=== PATIENT | female | born 1985 | race Caucasian/White ===

== ENCOUNTER 2017-07-08 05:00 | Inpatient (IN) | payer BC ==
[~2017-07-08] VITALS: Ht 167.6 cm; Wt 89.1 kg
[2017-07-08] MEDS: LACTATED RINGER'S 1,000 ML IV SCH ×3 (05:56→21:29)
[2017-07-08 06:00] VITALS: Ht 167.6 cm; Wt 89.1 kg
[2017-07-08] MEDS ORDERED: OXYTOCIN 30 UNITS/LR 500 ML IV PRN ×2 (06:00→13:30)
[2017-07-08] MEDS ORDERED: CARBOPROST 250 MCG INJ IM PRN ×2 (06:00→13:30)
[2017-07-08] MEDS ORDERED: MISOPROSTOL 200 MCG TAB PR PRN ×2 (06:00→13:30)
[2017-07-08] MEDS ORDERED: OXYTOCIN 30 UNITS/LR 500 ML IV SCH (06:00)
[2017-07-08] MEDS ORDERED: CEFAZOLIN 2 GM/50 ML (PMX) 50 ML IV SCH (06:00)
[2017-07-08] MEDS ORDERED: METHYLERGONOVINE 0.2 MG INJ IM PRN ×2 (06:00→13:30)
[2017-07-08 06:04] VITALS: BP 110/67; PULSE 75; RESP 18
[2017-07-08 06:42] LABS: BASOPHIL # 0.1 10^3/ul (0.0-0.1); BASOPHILS % 0.6 % (0.0-2.0); EOSINOPHILS % 0.4 % (0.0-7.0); HEMATOCRIT 38.7 % (37.0-47.0); HEMOGLOBIN 12.5 g/dl (12.0-16.0); LYMPHOCYTES % 24.2 % (15.0-51.0); MEAN CORPUSCULAR HEMOGLOBIN 28.5 pg (29.0-33.0); MEAN CORPUSCULAR HGB CONC 32.3 g/dl (32.0-37.0); MEAN CORPUSCULAR VOLUME 88.2 fl (82.0-101.0); MONOCYTE # 0.9 10^3/ul (0.3-0.9); MONOCYTES % 10.1 % (0.0-11.0); NEUTROPHILS % 64.3 % (39.0-77.0); PLATELET COUNT 319 10^3/UL (140-415); RED BLOOD COUNT 4.39 10^6/ul (4.20-5.40); RED CELL DISTRIBUTION WIDTH 13.9 % (11.5-14.5); WHITE BLOOD COUNT 8.4 10^3/ul (4.8-10.8)
[2017-07-08 07:13] LABS: INR 0.93; PROTIME 12.5 Sec (12.2-14.2)
[2017-07-08 07:14] LABS: PARTIAL THROMBOPLASTIN TIME 27.9 Sec (25.0-35.0)
[2017-07-08] MEDS ORDERED: METOCLOPRAMIDE 10 MG INJ ONE (08:41)
[2017-07-08] MEDS ORDERED: OXYTOCIN 10 UNIT INJ ONE (08:41)
[2017-07-08] MEDS ORDERED: OXYTOCIN 30 UNITS/LR 500 ML IV ONE (08:41)
[2017-07-08] MEDS ORDERED: EPHEDrine SULFATE 50 MG/5 ML SYG ONE (08:41)
[2017-07-08] MEDS ORDERED: ONDANSETRON 4 MG INJ ONE (08:41)
[2017-07-08] MEDS ORDERED: morphine SULFATE/PF (10 MG/10 ML) INJ ONE (08:41)
--- NOTE | 2017-07-08 08:42 | HP ---
Date/Time of Note Date/Time of Note DATE: 07/08/17 TIME: 08:39 OB - History Hx of Present Chief Complaint: scheduled and BTL Estimated Due Date: Jul 15, 2017 : 3 Para: 2 Spontaneous : 0 Therapeutic : 0 Care: Good Care Ultrasounds: Normal mid trimester US Obstetrical Complications: Gestational Diabetes Medical Complications: None Past Family/Social History * Past Medical, Surgical, Family and Obstetric Histories reviewed from chart. OB Admission Exam Vital Signs Vital Signs Vital Signs Date Time Temp Pulse Resp B/P Pulse Ox O2 Delivery O2 Flow Rate FiO2 07/08/17 06:04 99.0 75 18 110/67 Room Air Physical Exam HEENT: WNL Heart: Rhythm Normal Lungs: Clear, Equal Abdomen: WNL Extremities: Normal Reflexes: Normal Heart Rate: 120's Accelerations: Accelerations Present Decelerations: No Decelerations Varibility: Moderate Last 72 hours Lab Results CBC & BMP 07/08/17 05:40 OB Assessment/Plan Reason for admission: section, other (bilateral tubal ligation) Plan: Section, Other (bilateral tubal ligation) ARSEN DRAKE MD Jul 08, 2017 08:42
[2017-07-08] MEDS ORDERED: ONDANSETRON 4 MG INJ IV PRN (10:30)
[2017-07-08] MEDS ORDERED: EPHEDrine SULFATE 50 MG/5 ML SYG IV PRN (10:30)
[2017-07-08] MEDS ORDERED: NALOXONE (0.4 MG/ML) INJ IV PRN (10:30)
[2017-07-08] MEDS ORDERED: KETOROLAC 30 MG INJ IV PRN (10:30)
[2017-07-08] MEDS ORDERED: morphine 4 MG/ML VIAL IV PRN (10:30)
[2017-07-08] MEDS ORDERED: DIPHENHYDRAMINE 50 MG INJ IV PRN (10:30)
[2017-07-08] MEDS ORDERED: morphine 2 MG INJ IV PRN (10:30)
[2017-07-08] MEDS ORDERED: morphine SULFATE/PF (10 MG/10 ML) INJ SPINAL ONE (10:30)
--- NOTE | 2017-07-08 10:44 | SIPON ---
Date/Time of Note Date/Time of Note DATE: 07/08/17 TIME: 10:41 Operative Report Preoperative Diagnosis 39 weeks, previous c/s x2, GDM, voluntary sterilization Postoperative Diagnosis Same Operation/Procedure Performed Repeat c/s and BTL Surgeon: ARSEN DRAKE MD promotions assistant sales marketing: BECKIE TIERNEY MD Anesthesia Type: spinal Estimated Blood Loss: other (500 ml) Transfusion Required: no Specimen: none Specimens right and left Fallopian tubes Grafts/Implants: none Complications: no ARSEN DRAKE MD Jul 08, 2017 10:44
[2017-07-08 13:15] VITALS: BP 120/60; PULSE 75
[2017-07-08] MEDS ORDERED: OXYCODONE/ACETAMINOPHEN (5/325) TAB PO PRN ×2 (13:30)
[2017-07-08] MEDS ORDERED: LANOLIN 7 GM TUBE TOP PRN (13:30)
--- NOTE | 2017-07-08 13:53 | OPR ---
DATE OF OPERATION: 07/08/2017 PREOPERATIVE DIAGNOSES: 1. at 39 weeks with previous section x2. 2. Gestational diabetes. 3. Voluntary sterilization. POSTOPERATIVE DIAGNOSES: 1. at 39 weeks with previous section x2. 2. Gestational diabetes. 3. Voluntary sterilization. OPERATION: 1. Repeat low transverse section. 2. Bilateral tubal ligation. SURGEON: Gordy Alegre MD MAGNETIC TAPE COMPOSER OPERATOR: Tram Green MD ANESTHESIA: Spinal. ANESTHESIOLOGIST: Dr. Dacosta. OPERATIVE PROCEDURE: The patient was taken to the operating room, placed on the operating table. After successful spinal anesthesia was given, the patient was placed in supine position. The area was prepared and draped in the usual sterile fashion. Spinal anesthesia was tested and was satisfactory. Using scalpel, Pfannenstiel incision was made about 2 fingerbreadths above the symphysis pubis. The incision was carried down to the fascia. The fascia was incised and extended bilaterally with curved Connolly scissors. Two Art's were used to separate the fascia from the muscle. The muscle was dissected in the midline down to the peritoneum. The peritoneum was secured with 2 Jen's and incised with Metzenbaum scissors. Using a scalpel, a small transverse incision was made on the lower segment of the uterus. Upon entering the uterine cavity, bandage scissors were inserted to extend the incision bilaterally curved up. Baby was delivered from cephalic presentation. After suctioning clear of amniotic fluid the baby was handed off to the team in attendance. Apgars were 9 and 9. The placenta was delivered without difficulty. The uterus was closed with number 1 Monocryl continuous locked. After assuring hemostasis, both ovaries and tubes were inspected and all looked normal. The right fallopian tube was grasped with a Whitehall clamp. Using 0 plain suture ligature, a 5 cm segment of the right fallopian tube was doubly ligated. Using Metzenbaum scissors, a portion of the right fallopian tube above the ligated area was excised and sent to pathology. The same procedure was repeated on the left fallopian tube. The peritoneum was closed with 2-0 Vicryl continuous. The fascia was closed with number 1 Vicryl continuous in 2 segments. Subcutaneous tissue was reapproximated with 2-0 plain. The skin was closed with cheo. ESTIMATED BLOOD LOSS: 500 mL. COUNTS: All counts were correct. Dictated By: Gordy Alegre MD /fanny/imnh /Document#: [id number]
[2017-07-08 16:00] VITALS: BP 118/69; PULSE 80; RESP 16
[2017-07-08] MEDS: OXYTOCIN 30 UNITS/LR 500 ML IV SCH ×2 (16:57→20:51)
[2017-07-08 20:45] VITALS: BP 128/73; PULSE 69; RESP 18
[2017-07-08] MEDS: SENNA/DOCUSATE NA (8.6MG/50MG) TAB PO SCH (20:49)
[2017-07-09] VITALS: BP 117/59; PULSE 77; RESP 18
[2017-07-09] MEDS: LACTATED RINGER'S 1,000 ML IV SCH ×2 (00:48→05:29)
[2017-07-09 04:00] VITALS: BP 112/67; PULSE 79; RESP 18
[2017-07-09 08:20] VITALS: BP 113/68; PULSE 74; RESP 18
[2017-07-09] MEDS: SENNA/DOCUSATE NA (8.6MG/50MG) TAB PO SCH ×2 (09:30→21:07)
[2017-07-09 09:57] LABS: BASOPHILS % 0.5 % (0.0-2.0); EOSINOPHILS % 0.1 % (0.0-7.0); HEMOGLOBIN 11.4 g/dl (12.0-16.0); LYMPHOCYTES # 1.4 10^3/ul (0.8-2.9); LYMPHOCYTES % 16.4 % (15.0-51.0); MEAN CORPUSCULAR HEMOGLOBIN 28.8 pg (29.0-33.0); MEAN CORPUSCULAR HGB CONC 32.6 g/dl (32.0-37.0); MEAN CORPUSCULAR VOLUME 88.4 fl (82.0-101.0); MEAN PLATELET VOLUME 9.8 fl (7.4-10.4); MONOCYTE # 0.7 10^3/ul (0.3-0.9); MONOCYTES % 8.4 % (0.0-11.0); NEUTROPHILS % 74.2 % (39.0-77.0); PLATELET COUNT 262 10^3/UL (140-415); RED BLOOD COUNT 3.96 10^6/ul (4.20-5.40); RED CELL DISTRIBUTION WIDTH 13.8 % (11.5-14.5); WHITE BLOOD COUNT 8.2 10^3/ul (4.8-10.8)
--- NOTE | 2017-07-09 13:23 | QN ---
Documentation Comment No complaint Afebrile VSS Abdomen soft ND POD #1 stable Ambulate Advance diet. ARSEN DRAKE MD Jul 09, 2017 13:23
[2017-07-09] MEDS: IBUPROFEN 800 MG TAB PO SCH ×2 (14:45→21:07)
[2017-07-09 16:00] VITALS: BP 112/68; PULSE 59; RESP 20
[2017-07-09 19:30] VITALS: BP 114/68; PULSE 66; RESP 18
[2017-07-10 03:50] VITALS: BP 114/57; PULSE 50; RESP 17
[2017-07-10] MEDS: IBUPROFEN 800 MG TAB PO SCH ×3 (05:38→21:10)
[2017-07-10 08:00] VITALS: BP 120/77; PULSE 65; RESP 18
[2017-07-10] MEDS: SENNA/DOCUSATE NA (8.6MG/50MG) TAB PO SCH ×2 (09:30→21:09)
--- NOTE | 2017-07-10 13:12 | QN ---
Documentation Comment No complaint Afebrile VSS Abdomen soft Stable Continue present care. ARSEN DRAKE MD Jul 10, 2017 13:12
[2017-07-10 15:45] VITALS: BP 124/65; PULSE 68; RESP 18
[2017-07-10 20:00] VITALS: BP 132/85; PULSE 55; RESP 17
[2017-07-11 04:00] VITALS: BP 121/63; PULSE 64; RESP 18
[2017-07-11] MEDS: IBUPROFEN 800 MG TAB PO SCH ×2 (05:36→13:45)
[2017-07-11 08:00] VITALS: BP 121/69; PULSE 62; RESP 18
[2017-07-11] MEDS ORDERED: DIPHTH/TET/ACEL PERTUSS (ADULT) 0.5 ML VIAL IM* ONE (09:00)
[2017-07-11] MEDS: SENNA/DOCUSATE NA (8.6MG/50MG) TAB PO SCH (09:29)
--- NOTE | 2017-07-11 14:10 | DS ---
Date/Time of Note Date/Time of Note DATE: 07/11/17 TIME: 14:10 Obstetrical Discharge Record Final Diagnosis Final Diagnosis: Term delivered Vaginal Delivery Obstetrical Delivery: Spontaneous Section Section: Repeat Condition on Discharge Physical Assessment Voiding: Yes Bowel Movement: Yes Breast: Soft, non-tender Fundus: Firm Calf Tenderness: No Patient Condition: Stable NIKA GARNER MD Jul 11, 2017 14:10
== END 2017-07-11 16:58 | disposition home or self-care (01) | DRG 766 ==
LOC: L-D 05:00 → PP1 13:20
PROVIDERS: ADMIT Obstetrics & Gynecology; ATTEND Obstetrics & Gynecology
PROC: 0UL70ZZ Occlusion of Bilateral Fallopian Tubes, Open Approach (ICD-10-PCS; 2017-07-08)
PROC: 3E033VJ Introduction of Other Hormone into Peripheral Vein, Percutaneous Approach (ICD-10-PCS; 2017-07-08)
PROC: 10D00Z1 Extraction of Products of Conception, Low, Open Approach (ICD-10-PCS; principal; 2017-07-08 07:30)
DX: O34.211 Maternal care for low transverse scar from previous cesarean delivery (principal); O24.429 Gestational diabetes mellitus in childbirth, unspecified control; Z30.2 Encounter for sterilization; Z37.0 Single live birth; Z3A.39 39 weeks gestation of pregnancy
CPT/HCPCS: 82947; 85025; 85610; 85730; 86592; 86850; 86900; 86901; 87340; 88302; 90715; 94760; 99464; J0690; J1885; J2274; J2405; J2590; J2765; J7120